=== PATIENT | female | born 1965 | race Caucasian/White ===

== ENCOUNTER 2017-12-25 20:47 | Emergency (ER) | payer BC ==
--- NOTE | 2017-12-25 21:02 | CPEKG ---
Heart Rate: 70 RR Interval: 857 P-R Interval: 196 QRSD Interval: 88 QT Interval: 408 QTC Interval: 441 P Kopperl: 15 QRS Kopperl: 20 T Wave Kopperl: 99 EKG Severity - NORMAL ECG - EKG Impression: SINUS RHYTHM Electronically Signed By: Robert Trinh 25-Dec-2017 22:42:22
[2017-12-25 21:03] LABS: PLATELET COUNT 303 10^3/uL (150-400)
[2017-12-25] MEDS ORDERED: AZITHROMYCIN IV 500 MG in NS 250 ML IV ONE (22:02)
--- NOTE | 2017-12-25 22:20 | EDPHY ---
H & P Stated Complaint: syncopal episode Time Seen by Provider: 12/25/17 20:47 HPI/ROS: Chief Complaint: Syncope HPI: A 52-year-old woman was sitting at dinner tonight when she became lightheaded and had a witnessed syncopal event. She was unconscious for several seconds. She did not have any chest pain or palpitations prior to this. She did have 1 Iesha. Does not have a history of syncope in the past. No chest pain or shortness of breath now. On EMS arrival she is noted to be mildly bradycardic and hypotensive in the 70s. She has since recovered. No postictal phase. She does have a history of a PE in the past while she was on oral contraceptives but does not have any other risk factors at this time. She is visiting from the [employer] going to business trip will be here for the next 2 weeks and draining. No leg pain or swelling. Currently is without complaint. No family history of sudden cardiac or heart attack. ROS: 10 point Review of Systems is negative except as noted in the HPI. PMH: PE, splenectomy Social History: No smoking, occasional alcohol, no recreational drug use Family History: non-contributory Physical Exam: Gen: Awake, Alert, No Distress HEENT: Nose: no rhinorrhea Eyes: PERRLA, EOMI Mouth: Moist mucosa Neck: Supple, no JVD Chest: nontender, lungs clear to auscultation Heart: S1, S2 normal, no murmur Abd: Soft, non-tender, no guarding Back: no CVA tenderness, no midline tenderness Ext: no edema, non-tender Skin: no rash Neuro: CN II-XII intact, Sensation grossly intact, Strength 5/5 in bilateral upper and lower extremities - Personal History LMP (Females 10-55): Over 28 Days Ago Current Tetanus/Diphtheria Vaccine: Yes - Medical/Surgical History Hx Asthma: No Hx Chronic Respiratory Disease: No Hx Diabetes: No Hx Renal Disease: No Hx Cirrhosis: No Hx Alcoholism: No Hx HIV/AIDS: No Hx Splenectomy or Spleen Trauma: Yes Other PMH: PE's, spleen removed, L ovary removed - Social History Smoking Status: Never smoked Constitutional: Initial Vital Signs Temperature (C) 36.7 C 12/25/17 20:50 Heart Rate 72 12/25/17 20:50 Respiratory Rate 18 12/25/17 20:50 Blood Pressure 134/70 H 12/25/17 20:50 O2 Sat (%) 94 12/25/17 20:50 O2 Delivery Mode Room Air Allergies/Adverse Reactions: ampicillin Allergy (Verified 12/25/17 20:57) Home Medications: Medication Instructions Recorded NK [No Known Home Meds] 12/25/17 Medical Decision Making - Diagnostics EKG Interpretation: ECG time 2100, sinus rhythm with a rate of 70, normal axis, normal intervals, no acute ST or T-wave changes. Impression: Normal ECG. ED Course/Re-evaluation: 52-year-old woman with a syncopal event likely vasovagal. D-dimer is negative. ECG is normal. Troponin is negative. His otherwise no risk factors for arrhythmia. She is awake alert without complaint at this time. She has been given precautions. She will be discharged with follow up with physician when she returns back to [place]. Will refer her for local follow-up for any concerns. - Data Points Laboratory Results: Laboratory Results 12/25/17 20:47 12/25/17 20:47 12/25/17 12/25/17 12/25/17 20:55 20:47 20:47 WBC RBC Hgb Hct MCV MCH MCHC RDW Plt Count MPV Neut % (Auto) Lymph % (Auto) Moca % (Auto) Eos % (Auto) Baso % (Auto) Nucleat RBC Rel Count Absolute Neuts (auto) Absolute Lymphs (auto) Absolute Monos (auto) Absolute Eos (auto) Absolute Basos (auto) Absolute Nucleated RBC Immature Gran % Immature Gran # RBC/WBC/PLT Morphology Platelet Estimate D-Dimer < 0.27 ug/mLFEU ug/mLFEU (0.00-0.50) Sodium 138 mEq/L mEq/L (135-145) Potassium 3.6 mEq/L mEq/L (3.3-5.0) Chloride 103 mEq/L mEq/L (97-110) Carbon Dioxide 21 mEq/l L mEq/l (22-31) Anion Gap 14 mEq/L mEq/L (8-16) BUN 17 mg/dL mg/dL (7-23) Creatinine 0.9 mg/dL mg/dL (0.6-1.0) Estimated GFR > 60 Glucose 107 mg/dL H mg/dL (70-100) Calcium 9.7 mg/dL mg/dL (8.5-10.4) POC Troponin I 0.00 ng/mL ng/mL (0.00-0.08) 12/25/17 20:47 WBC 10.43 10^3/uL H 10^3/uL (3.80-9.50) RBC 4.61 10^6/uL 10^6/uL (4.18-5.33) Hgb 14.9 g/dL g/dL (12.6-16.3) Hct 43.2 % % (38.0-47.0) MCV 93.7 fL fL (81.5-99.8) MCH 32.3 pg pg (27.9-34.1) MCHC 34.5 g/dL g/dL (32.4-36.7) RDW 13.6 % % (11.5-15.2) Plt Count 303 10^3/uL 10^3/uL (150-400) MPV 9.6 fL fL (8.7-11.7) Neut % (Auto) 28.7 % L % (39.3-74.2) Lymph % (Auto) 61.6 % H % (15.0-45.0) Moca % (Auto) 8.4 % % (4.5-13.0) Eos % (Auto) 0.9 % % (0.6-7.6) Baso % (Auto) 0.3 % % (0.3-1.7) Nucleat RBC Rel Count 0.0 % % (0.0-0.2) Absolute Neuts (auto) 2.99 10^3/uL 10^3/uL (1.70-6.50) Absolute Lymphs (auto) 6.42 10^3/uL H 10^3/uL (1.00-3.00) Absolute Monos (auto) 0.88 10^3/uL H 10^3/uL (0.30-0.80) Absolute Eos (auto) 0.09 10^3/uL 10^3/uL (0.03-0.40) Absolute Basos (auto) 0.03 10^3/uL 10^3/uL (0.02-0.10) Absolute Nucleated RBC 0.00 10^3/uL 10^3/uL (0-0.01) Immature Gran % 0.1 % % (0.0-1.1) Immature Gran # 0.01 10^3/uL 10^3/uL (0.00-0.10) RBC/WBC/PLT Morphology TNP Platelet Estimate TNP D-Dimer Sodium Potassium Chloride Carbon Dioxide Anion Gap BUN Creatinine Estimated GFR Glucose Calcium POC Troponin I Point of Care Test Results: Chemistry 12/25/17 20:55 POC Troponin I 0.00 ng/mL ng/mL (0.00-0.08) Departure - Departure Disposition: Home, Routine, Self-Care Clinical Impression: Vasovagal syncope Condition: Good Instructions: Syncope (ED) Additional Instructions: Follow up with primary care physician when you return home. You may follow up with a local primary care physician for any concerns. Return to the emergency department for lightheadedness, fainting, chest pain, shortness of breath, or any other concerns. Referrals: Inocencio England MD [Medical Doctor] - As per Instructions
[2017-12-25 22:42] VITALS: BP 123/71
== END 2017-12-25 22:42 | disposition home or self-care (01) ==
DX: R55 Syncope and collapse (principal)
CPT/HCPCS: 84484-PO; J0456